=== PATIENT | male | born 1990 | race Caucasian/White ===

== ENCOUNTER 2025-04-29 17:07 | Inpatient (IN) | payer OTHER, SELFPAY ==
[2025-04-29] VITALS (13 sets, daily range): BP systolic 126–157; BP diastolic 73–108; BMI 34.2
[2025-04-29 13:36] LABS: Hematocrit 44.3 % (39.0-52.0); Hemoglobin 15.8 g/dL (13.0-18.0); Mean Corp Hgb Conc. 35.7 g/dL (33.0-37.0); Mean Corpuscular Volume 88.1 fL (80.0-94.0); Nucleated Red Blood Cells % 0 % (-); Platelet Count 266 10^3/uL (130-400); Red Cell Dist. Width 12.0 % (11.5-14.5)
[2025-04-29] MEDS: VALIUM INJECTION 5 MG IV (13:46)
[2025-04-29] MEDS: ZOFRAN 4 MG IV ×2 (13:46→15:40)
[2025-04-29 13:48] LABS: ALT (SGPT) 248 U/L (0-50); AST (SGOT) 141 U/L (17-59); Albumin 4.9 g/dl (3.5-5.0); Alkaline Phosphatase 74 U/L (38-126); Blood Urea Nitrogen 12 mg/dl (9-20); Calcium 8.9 mg/dl (8.4-10.2); Carbon Dioxide 26 mmol/L (22-30); Chloride 100 mmol/L (98-107); Estimated Creatinine Clearance > 125 ml/min; Glucose 113 mg/dl (70-99); Potassium 3.8 mmol/L (3.5-5.1); Sodium 135 mmol/L (135-145); Total Protein 8.1 g/dl (6.3-8.2); eGFR > 60.00
--- NOTE | 2025-04-29 14:06 | ED.GENMED ---
History of Present Illness
<Parish Klein PA-C - Last Filed: 04/29/25 16:48>
General
Chief Complaint: Alcohol Problem
Source: patient
Time Seen by Provider: 04/29/25 13:32
History of Present Illness
History of Present Illness:
35-year-old male past medical history of non-Hodgkin's lymphoma and chronic alcohol use presenting to the ER for evaluation after he had been trying to wean himself off alcohol over the last couple weeks. Previously he had been drinking 1 bottle
per day, has decreased over the last 2 weeks to 6 ounces but states today persistently nauseous with vomiting, restlessness, mild headache and generally feeling unwell. Patient states he would be amenable to outpatient based therapy but does not
want any inpatient based treatment. No fevers or infectious symptoms. Denying any SI to me.
Past History
<Parish Klein PA-C - Last Filed: 04/29/25 16:48>
Past History
ED Past Medical History: Asthma, Cancer and Psychiatric
ED Past Surgical History: None
Social History
Tobacco: Non-smoker
Alcohol: Chronic alcoholic
Drug: Marijuana
Personal: Single
Living: with family
Employment: Employed
Review of Systems
<Parish Klein PA-C - Last Filed: 04/29/25 16:48>
Review of Systems
All Other Systems: ROS reviewed and negative except as documented in HPI and ROS
Phy Exam
<Parish Klein PA-C - Last Filed: 04/29/25 16:48>
Physical Exam
Physical Exam:
GENERAL: Alert , in no apparent distress
HEAD: Normocephalic atraumatic
EYE: conjunctiva clear, anicteric sclera
NECK: Supple, no significant adenopathy.
ENT: o/p clr, mmm.
CARDIAC: Tachycardic rate, regular rhythm
LUNGS: Clear breath sounds bilaterally, no acute respiratory distress, no wheezes/rales/rhonchi
NEUROLOGICAL: Alert and oriented, minor tremors at the fingertips
SKIN: Warm and dry, skin intact.
MUSCULOSKELETAL: well perfused.
PSYCH: Normal and appropriate interaction.
Scores
<Parish Klein PA-C - Last Filed: 04/29/25 16:48>
Heart Failure Risk
Heart Failure Risk Score: Not Applicable
Heart Score for Chest Pain Patients
STEMI patient?: Not applicable
Withdrawal Assessment of Alcohol
Withdrawal Assessment Completed?: Yes
Nausea and Vomiting: Constant nausea, frequent dry heaves and vomiting
Tactile Disturbances: Mild itching, pins and needles, burning or numbness
Tremor: Not visible, but can be felt fingertip to fingertip
Auditory Disturbances: Not present
Paroxysmal Sweats: No sweat visible
Visual Disturbances: Not present
Anxiety: Mild anxiety
Headache, Fullness in Head: Mild
Agitation: Normal activity
Orientation and clouding of sensorium: Oriented and can do serial additions
Total CIWA Score: 13
Alcohol Withdrawal Medication Recommendation: Equal to MSAS Score 5-7. Lorazepam 1mg IV or PO NOW & re-assess q2hrs
<Jonny Pemberton DO - Last Filed: 04/29/25 14:59>
Withdrawal Assessment of Alcohol
Total CIWA Score: 13
Alcohol Withdrawal Medication Recommendation: Equal to MSAS Score 5-7. Lorazepam 1mg IV or PO NOW & re-assess q2hrs
Course
<Parish Klein PA-C - Last Filed: 04/29/25 16:48>
Orders/Labs/Results
Orders:
Orders
04/29/25 13:30
Alcohol Urgent
Complete Blood Count/With Diff Urgent
Comprehensive Metabolic Panel Urgent
Magnesium Urgent
Comment: ADD ON
04/29/25 13:39
Ondansetron Injectable [Zofran] 4 mg IV NOW STA
diazePAM [Valium Injection] 5 mg IV NOW STA
04/29/25 13:41
Add On- LAB Urgent
Tests Added?: mag
04/29/25 15:00
Dextrose 5%/0.9%Sodchl 1000 ml [D5/0.9% Sodium Chloride] 1,000 ml IV 1,000 mls/hr
04/29/25 15:30
Lorazepam [Ativan] 2 mg IV NOW STA
Ondansetron Injectable [Zofran] 4 mg IV NOW STA
04/29/25 16:41
Admit/Transfer Patient As Directed
Co-Sign Provider:
Level of Care: Inpatient admission
Assign to:: Telemetry
Physician / Group: Dr Moe
Diagnosis: Alcohol withdrawal
Reason for Telemetry: Arrhythmia
Date to Stop Telemetry: 05/02/25
Time to Stop Telemetry: 11:00
Reason for Hospitalization: Alcohol withdrawal
Expected length of stay greater than two midnights?: Yes
ELOS- Estimated Length of Stay in days: 2
I certify the patient meets the requirements for IP care: Yes
PRN Pain Medication Management As Directed
May give lesser potent ordered pain med per pt: Yes
preference::
Protocol:: Medication orders for pain may be administered in a
manner that supports deferring to patient preference
when the pt is:
- Requesting an ordered lesser potent pain medication.
Least to most potent pain medications are defined
as: acetaminophen < NSAID < tramadol < opioids
(morphine, oxycodone, hydromorphone).
- Requesting a lesser dose of the same medication IF
ORDERED.
- Requesting a less intrusive route of administration
if both routes are prescribed by the provider (PO <
IV).
04/29/25 16:42
Code Status As Directed
Resuscitation Status: Full Code
04/29/25 16:44
Case Management Consult Once
Case Management Consult: Other
Comment: Substance abuse counseling
DIETARY IP CONSULT Routine
Reason for Consult: Nutrition support, possible refeeding guidelines
Urine Drug Abuse Screen Routine
0.9% Sodium Chloride [Nss (Preservative Free)] See Protocol IV PRN PRN
FOLic ACID [Folvite] 1 mg 0.9% Sodium Chloride 50 ml [Nss] 50 ml IV DAILYPRN
Lorazepam [Ativan] 1 mg IV Q1HPRN PRN
Lorazepam [Ativan] 1 mg PO Q2HPRN PRN
Lorazepam [Ativan] 2 mg IV Q1HPRN PRN
MSAS SCORE As Directed
MSAS Score 0-4: Repeat MSAS every 2 hours until 0-4 for three consecutive assessments, then every 4 hours x 48
hours.
MSAS Score 5-7: For MILD withdrawl symptoms. Repeat MSAS and RASS every 2 hours
MSAS Score 8-11: For MODERATE withdrawal symptoms. Repeat MSAS and RASS every 1 hour. Consider ICU or IMU
level of care.
MSAS Score > 11: For SEVERE withdrawal symptoms. Repeat MSAS and RASS every 1 hour. Notify provider, consider
ICU level of care.
MSAS Additional Instructions: If no improvement or no decrease in score from severe to moderate within 12
hours, consult psychiatry
MSAS Notify Provider: Notify provider if patient requires more than 10 mg of Lorazepam in eight hour period.
04/29/25 17:00
FOLic ACID [Folvite] 1 mg PO DAILY
04/29/25 20:00
Thiamine Injection 200 mg IV Q12
05/02/25 11:00
DC Protocol for Telemetry ONCE
05/02/25 20:00
Thiamine HCl [Vitamin B1] 100 mg PO BID
Abnormal Lab Results
04/29/25
13:30
MCH 31.4 H pg
(27.0-31.0)
Abs Immat Gran (auto) 0.1 H 10^3/uL
(0-0.05)
Absolute Monos (auto) 0.7 H 10^3/uL
(0.1-0.6)
Immature Gran % 1.0 H %
(0-0.5)
Monocytes % 12.2 H %
(1.7-9.3)
Glucose 113 H mg/dl
(70-99)
AST 141 H U/L
(17-59)
ALT 248 H U/L
(0-50)
04/29/25 13:30
04/29/25 13:30
Vital Signs
Initial and Last Documented VS:
Initial Vital Signs
Temp Pulse Resp BP Pulse Ox
98.9 F 116 18 149/106 95
04/29/25 13:15 04/29/25 13:15 04/29/25 13:15 04/29/25 13:15 04/29/25 13:15
Last Documented Vital Signs
Temp Pulse Resp BP Pulse Ox
98.8 F 109 27 126/73 93
04/29/25 15:35 04/29/25 16:15 04/29/25 16:15 04/29/25 16:00 04/29/25 16:15
<Jonny Pemberton, DO - Last Filed: 04/29/25 14:59>
Orders/Labs/Results
Orders:
Orders
04/29/25 13:30
Alcohol Urgent
Complete Blood Count/With Diff Urgent
Comprehensive Metabolic Panel Urgent
Magnesium Urgent
Comment: ADD ON
04/29/25 13:39
Ondansetron Injectable [Zofran] 4 mg IV NOW STA
diazePAM [Valium Injection] 5 mg IV NOW STA
04/29/25 13:41
Add On- LAB Urgent
Tests Added?: mag
04/29/25 15:00
Dextrose 5%/0.9%Sodchl 1000 ml [D5/0.9% Sodium Chloride] 1,000 ml IV 1,000 mls/hr
04/29/25 15:30
Lorazepam [Ativan] 2 mg IV NOW STA
Ondansetron Injectable [Zofran] 4 mg IV NOW STA
04/29/25 16:41
Admit/Transfer Patient As Directed
Co-Sign Provider:
Level of Care: Inpatient admission
Assign to:: Telemetry
Physician / Group: Dr Moe
Diagnosis: Alcohol withdrawal
Reason for Telemetry: Arrhythmia
Date to Stop Telemetry: 05/02/25
Time to Stop Telemetry: 11:00
Reason for Hospitalization: Alcohol withdrawal
Expected length of stay greater than two midnights?: Yes
ELOS- Estimated Length of Stay in days: 2
I certify the patient meets the requirements for IP care: Yes
PRN Pain Medication Management As Directed
May give lesser potent ordered pain med per pt: Yes
preference::
Protocol:: Medication orders for pain may be administered in a
manner that supports deferring to patient preference
when the pt is:
- Requesting an ordered lesser potent pain medication.
Least to most potent pain medications are defined
as: acetaminophen < NSAID < tramadol < opioids
(morphine, oxycodone, hydromorphone).
- Requesting a lesser dose of the same medication IF
ORDERED.
- Requesting a less intrusive route of administration
if both routes are prescribed by the provider (PO <
IV).
04/29/25 16:42
Code Status As Directed
Resuscitation Status: Full Code
04/29/25 16:44
Case Management Consult Once
Case Management Consult: Other
Comment: Substance abuse counseling
DIETARY IP CONSULT Routine
Reason for Consult: Nutrition support, possible refeeding guidelines
Urine Drug Abuse Screen Routine
0.9% Sodium Chloride [Nss (Preservative Free)] See Protocol IV PRN PRN
FOLic ACID [Folvite] 1 mg 0.9% Sodium Chloride 50 ml [Nss] 50 ml IV DAILYPRN
Lorazepam [Ativan] 1 mg IV Q1HPRN PRN
Lorazepam [Ativan] 1 mg PO Q2HPRN PRN
Lorazepam [Ativan] 2 mg IV Q1HPRN PRN
MSAS SCORE As Directed
MSAS Score 0-4: Repeat MSAS every 2 hours until 0-4 for three consecutive assessments, then every 4 hours x 48
hours.
MSAS Score 5-7: For MILD withdrawl symptoms. Repeat MSAS and RASS every 2 hours
MSAS Score 8-11: For MODERATE withdrawal symptoms. Repeat MSAS and RASS every 1 hour. Consider ICU or IMU
level of care.
MSAS Score > 11: For SEVERE withdrawal symptoms. Repeat MSAS and RASS every 1 hour. Notify provider, consider
ICU level of care.
MSAS Additional Instructions: If no improvement or no decrease in score from severe to moderate within 12
hours, consult psychiatry
MSAS Notify Provider: Notify provider if patient requires more than 10 mg of Lorazepam in eight hour period.
04/29/25 17:00
FOLic ACID [Folvite] 1 mg PO DAILY
04/29/25 20:00
Thiamine Injection 200 mg IV Q12
05/02/25 11:00
DC Protocol for Telemetry ONCE
05/02/25 20:00
Thiamine HCl [Vitamin B1] 100 mg PO BID
Abnormal Lab Results
04/29/25
13:30
MCH 31.4 H pg
(27.0-31.0)
Abs Immat Gran (auto) 0.1 H 10^3/uL
(0-0.05)
Absolute Monos (auto) 0.7 H 10^3/uL
(0.1-0.6)
Immature Gran % 1.0 H %
(0-0.5)
Monocytes % 12.2 H %
(1.7-9.3)
Glucose 113 H mg/dl
(70-99)
AST 141 H U/L
(17-59)
ALT 248 H U/L
(0-50)
04/29/25 13:30
04/29/25 13:30
Vital Signs
Initial and Last Documented VS:
Initial Vital Signs
Temp Pulse Resp BP Pulse Ox
98.9 F 116 18 149/106 95
04/29/25 13:15 04/29/25 13:15 04/29/25 13:15 04/29/25 13:15 04/29/25 13:15
Last Documented Vital Signs
Temp Pulse Resp BP Pulse Ox
98.8 F 109 27 126/73 93
04/29/25 15:35 04/29/25 16:15 04/29/25 16:15 04/29/25 16:00 04/29/25 16:15
<Parish Klein PA-C - Last Filed: 04/29/25 16:48>
MDM/Problems Addressed
Differential Diagnosis Includes:
Alcohol abuse
Alcohol withdrawal
Electrolyte derangement
Dehydration
MDM/Problems Addressed:
35-year-old male presenting the ER for evaluation of alcohol abuse. Has been attempting to self wean at home but now appears to be in acute withdrawal. Mildly hypertensive and tachycardic. Will treat symptoms with IV Valium and Zofran as well as
fluids. Will consult with [facility]. Disposition pending
Chronic conditions affecting care: Psychiatric illness
Acute Exacerbation and/or Progression of Chronic Illness: Psychiatric illness
<Parish Klein PA-C - Last Filed: 04/29/25 16:48>
*Pulse Oximetry
SaO2: 95
Oxygen Mode of Delivery: Room air
Patient hypoxic: no
*Chief Lock Operator Interpretation
Rate: normal and tachycardiac
Heart Rate: 110
Rhythm: sinus
*Critical Care Note
Total Time (30-74mins, 75-104mins- exclusive of procedures): 30
comment:
Critical care statement: A total of 30 minutes of critical care time was provided for this patient. This includes management of unstable vital signs, evaluation of the patient at bedside, reviewing the patient's pertinent medical records, discussion
with consultants, review of old EKGs and review of pertinent medical records. This time with separate from time utilized to perform the aforementioned documented procedures
<Parish Klein PA-C - Last Filed: 04/29/25 16:48>
Patient Management
Discussion with other providers: Hospitalist
Escalation/DeEscalation of care consider admission/obs:
Patient with minimal improvement of symptoms following first round of IV medications. Noted to still be significantly tachycardic, nauseous and generally unwell. Still scoring greater than 13 on CIWA protocol. Will admit for continued management
of acute alcohol withdrawal. Hospitalist team aware and accepts for continued evaluation and treatment
ED Attending Note
<Parish Klein PA-C - Last Filed: 04/29/25 16:48>
-
Portions of this chart may have been created with voice recognition software.� Occasional wrong word or��sound alike� substitutions may have occurred due to the inherent limitations of voice recognition software.
<Jonny Pemberton DO - Last Filed: 04/29/25 14:59>
ED Attending Note
Patient seen and examined by attending physician: Yes
I performed the substantive portion of visit, reviewed & personally made and approve the management plan that is documented in note by myself or FREEDOM.: Yes
ED Attending Note:
35-year-old male who recently has been binge drinking after quitting his job. Patient states he has had persistent vomiting. he did try to wean himself off at home. Exam: Tachycardic, hypertensive, mildly restless. Awake alert and oriented. No
focal motor deficits. Assessment and plan: Benzodiazepines, IV fluids, add dextrose. May need inpatient care
Discharge Plan
Departure
Patient Disposition: Admit
Date of Disposition: 04/29/25
Time of Disposition: 15:32
Presentation/result/management discussed w/ accepting MD/DO: Hospitalist
Discharge Problem:
Alcohol withdrawal
Prescriptions:
No Action
No Current Medications
0
Interventions
Interventions:
*Risk Screen - Suicide Last Done: 04/29/25 13:15
*General Assessment Last Done: 04/29/25 13:15
*Neglect/Abuse Screening Last Done: 04/29/25 13:15
*ED- Fall Risk Assessment Last Done: 04/29/25 13:15
*ED COVID-19 Vaccine History Last Done: 04/29/25 13:15
*ED Influenza Vaccine History Last Done: 04/29/25 13:15
ED- Neurological Assessment Last Done: 04/29/25 13:15
ED-Psychological Assessment Last Done: 04/29/25 13:15
Discharge Date and Time
Print Language: CITIZEN [place]
[2025-04-29 14:12] LABS: Magnesium 1.8 mg/dl (1.6-2.3)
[2025-04-29] MEDS: ATIVAN 2 MG IV (15:46)
[2025-04-29] MEDS: D5/0.9% SODIUM CHLORIDE 1000 IV (15:52)
--- NOTE | 2025-04-29 16:07 | HPS.HSE ---
Family Physician
-
Family Physician:
Chief Complaint
-
Nausea and vomiting
History of Present Illness
Patient 35 years old male with history of heavy alcohol use, history of non-Hodgkin lymphoma in the past, came into the hospital with persistent nausea and vomiting. Patient has been complaining of tremors, nausea, vomiting, anxiety, the last 2 to
3 days and has been drinking alcohol heavily. Last drink was around 1 AM he tells me this morning. Patient has been trying to cut down on his daily habit by himself over the last week or so without significant success. He denies any other illicit
drug use, denies any IVDA, denies fevers or chills. Denies [id number]'s or herbs intake. Denies any medications at home. Denies any seizures from alcohol withdrawal in the past. Denies any chest pain or shortness of breath. Here in the ER
he has been noted to be tachycardic and tremulous and has been given some multiple benzodiazepines doses. He was referred to hospitalist service for further evaluation.
Medical History
Past Medical History
Past Medical History: Reports Other (heavy alcohol use, history of non-Hodgkin lymphoma.)
Past Surgical History: Reports None
Social History
Tobacco: Non-smoker
Alcohol: Daily
Drug: None
Family History
Family History: Not pertinent
Allergies / Home Medications
Allergies reflects when Allergies were last updated in [employer].
Home Medications with original date entered in [employer]
Allergy/Medication List:
Allergies
Allergy/AdvReac Type Severity Reaction Status Date / Time
prochlorperazine (From AdvReac Vomiting Verified 04/29/25 15:33
Compazine)
Home Medications
No Meds [No Current Medications] 04/29/25
I personally reviewed with patient and no home medications that he is aware.
Review of Systems
-
A 12 point ROS was completed and negative except as noted: Yes
Physical Exam
Vital Signs
Vital Signs
Temp Pulse Resp BP Pulse Ox
98.8 F 113 18 147/93 95
04/29/25 15:35 04/29/25 15:45 04/29/25 15:45 04/29/25 15:35 04/29/25 15:45
Physical exam:
General: Acutely ill
HEENT: Normocephalic, Atraumatic and Moist Mucous Membranes
Respiratory: Clear to Auscultation; Negative Wheezes, Rales or Rhonchi
Cardiac: Regular Rhythm, tachycardic, and S1/S2
GI: Soft, Nontender and Nondistended
Musculoskeletal: No Clubbing, No Cyanosis and No Edema
Neuro: Awake, Alert and Oriented, tremors present, nystagmus, no neurodeficits
Psych: Anxious
Physical Exam
General: Other
Laboratory Results
-
04/29/25 13:30
04/29/25 13:30
Laboratory Results
Total Bilirubin 1.0 mg/dl (0.2-1.3) 04/29/25 13:30
AST 141 U/L (17-59) H 04/29/25 13:30
ALT 248 U/L (0-50) H 04/29/25 13:30
Alkaline Phosphatase 74 U/L (38-126) 04/29/25 13:30
Impression/Plan
-
IMPRESSION:
Patient 35 years old male came into the hospital with severe alcohol intoxication and severe alcohol withdrawal as well. Patient at risk of increased morbidity mortality therefore he will need to be treated and monitored in hospital.
PLAN:
Severe alcohol withdrawal:
Start withdrawal protocol
Thiamine and folate
IV fluid
Monitor mental status and behavior
Elevated LFTs:
Although not typically 2:1 pattern of AST and ALT and is actually reversed, likely alcohol related
Check INR to evaluate discriminant factor
DVT prophylaxis:
Lovenox SQ
CODE STATUS:
Full code
Time spent 75 minutes
--- NOTE | 2025-04-29 17:06 | EDCM ---
Received consult, met with pt bedside in ED. Pt lives with his mother in multistory home.
Independent in ADLs, personal care and ambulation at baseline, no DME in home.
Confirms prescription coverage.
No hx VN or SNF.
Pt told me he spoke to someone from [facility] earlier today and he will come back tomorrow with pamphlets.
Does not currently have PCP.
Pharmacy: [facility]
Anticipate discharge home, no needs. CM will continue to follow for all discharge planning needs.
[2025-04-29] MEDS: FOLVITE 1 MG PO (18:40)
[2025-04-29 18:52] LABS: INR 1.00; PT 13.7 Sec (11.4-14.6)
[2025-04-29] MEDS: LOVENOX 40 MG SC (20:27)
[2025-04-29] MEDS: THIAMINE INJECTION 200 MG IV (20:30)
[2025-04-29] MEDS: D5/0.45%NSS with KCL 20 MEQ 1000 IV (20:37)
[2025-04-29] MEDS: ATIVAN 1 MG PO (21:05)
[2025-04-30] VITALS (12 sets, daily range): BP systolic 117–167; BP diastolic 84–105; BMI 35.1
[2025-04-30] MEDS: ATIVAN 1 MG PO ×3 (01:22→08:31)
[2025-04-30] MEDS: D5/0.45%NSS with KCL 20 MEQ 1000 IV (04:54)
[2025-04-30 05:27] LABS: INR 0.97; PT 13.4 Sec (11.4-14.6)
[2025-04-30 05:31] LABS: Hematocrit 42.3 % (39.0-52.0); Hemoglobin 14.7 g/dL (13.0-18.0); Mean Corp Hgb Conc. 34.8 g/dL (33.0-37.0); Mean Corpuscular Volume 89.1 fL (80.0-94.0); Platelet Count 191 10^3/uL (130-400); Red Cell Dist. Width 11.9 % (11.5-14.5)
[2025-04-30 06:07] LABS: ALT (SGPT) 198 U/L (0-50); AST (SGOT) 101 U/L (17-59); Albumin 4.3 g/dl (3.5-5.0); Alkaline Phosphatase 69 U/L (38-126); Blood Urea Nitrogen 8 mg/dl (9-20); Calcium 8.5 mg/dl (8.4-10.2); Carbon Dioxide 26 mmol/L (22-30); Chloride 100 mmol/L (98-107); Estimated Creatinine Clearance > 125 ml/min; Glucose 95 mg/dl (70-99); Potassium 3.7 mmol/L (3.5-5.1); Sodium 132 mmol/L (135-145); Total Protein 7.2 g/dl (6.3-8.2); eGFR > 60.00
[2025-04-30] MEDS: FOLVITE 1 MG PO (08:31)
[2025-04-30] MEDS: THIAMINE INJECTION 200 MG IV ×2 (08:57→19:48)
[2025-04-30 11:24] LABS: Magnesium 1.5 mg/dl (1.6-2.3)
[2025-04-30] MEDS: D5/0.45%NSS with KCL 20 MEQ IV (11:42)
[2025-04-30] MEDS: MAGNESIUM SULFATE 50 IV (12:25)
--- NOTE | 2025-04-30 12:30 | W.PN.HOSP.TC ---
Today's Communication/Plan
-
Replace magnesium. Alcohol withdrawal protocol
Assessment / Plan
Assessment / Plan
Physical exam:
General: Well Developed, Well Nourished and No Apparent Distress
HEENT: Normocephalic, Atraumatic and Moist Mucous Membranes
Respiratory: Clear to Auscultation; Negative Wheezes, Rales or Rhonchi
Cardiac: Regular Rhythm and S1/S2
GI: Soft, Nontender and Nondistended
Musculoskeletal: No Clubbing, No Cyanosis and No Edema
Neuro: Awake, Alert and Oriented, no neurological deficit
Psych: Calm
A/P:
Severe alcohol withdrawal:
Continue withdrawal protocol
Thiamine and folate
Stop IV fluid
Monitor mental status and behavior
Patient interested in alcohol rehab as outpatient
Hypomagnesemia:
Replete and trend
Elevated LFTs:
Trending down appropriately
DVT prophylaxis:
Lovenox SQ
CODE STATUS:
Full code
Anticipated Discharge: Within 24 hours
Subjective/Interval History
-
Date of Service: April 30, 2025
Patient still having some tremors and nausea but overall improving.
Objective Data
-
Labs:
Laboratory Results
04/30/25
05:01
WBC 4.9
Hgb 14.7
Hct 42.3
Plt Count 191 D
PT 13.4
INR 0.97
Sodium 132 L
Potassium 3.7
Chloride 100
Carbon Dioxide 26
BUN 8 L
Creatinine 0.8
Glucose 95
Calcium 8.5
Total Bilirubin 1.6 H
AST 101 H
ALT 198 H
Alkaline Phosphatase 69
Vital Signs:
Vital Signs
Temp Pulse Resp BP Pulse Ox
97.7 F 93 20 162/102 98
04/30/25 08:25 04/30/25 08:25 04/30/25 08:25 04/30/25 08:25 04/30/25 08:25
[2025-04-30] MEDS: ZOFRAN 4 MG IV (18:13)
[2025-04-30] MEDS: LOVENOX 40 MG SC (18:13)
[2025-04-30] MEDS: TYLENOL 650 MG PO (18:14)
[2025-04-30] MEDS: CATAPRES 0.1 MG PO (19:49)
[2025-05-01 03:00] VITALS: BP 135/96
[2025-05-01] MEDS: ATIVAN 1 MG PO (03:28)
[2025-05-01 07:00] VITALS: BP 145/103
[2025-05-01 08:28] VITALS: BP 145/103
[2025-05-01 08:46] LABS: Blood Urea Nitrogen 8 mg/dl (9-20); Calcium 9.2 mg/dl (8.4-10.2); Carbon Dioxide 23 mmol/L (22-30); Chloride 100 mmol/L (98-107); Estimated Creatinine Clearance > 125 ml/min; Glucose 89 mg/dl (70-99); Magnesium 2.3 mg/dl (1.6-2.3); Potassium 4.1 mmol/L (3.5-5.1); Sodium 134 mmol/L (135-145); eGFR > 60.00
[2025-05-01] MEDS: CATAPRES 0.1 MG PO ×2 (08:55→20:12)
[2025-05-01] MEDS: TYLENOL 650 MG PO (08:55)
[2025-05-01] MEDS: FOLVITE 1 MG PO (08:55)
[2025-05-01] MEDS: THIAMINE INJECTION 200 MG IV ×2 (08:56→20:13)
--- NOTE | 2025-05-01 09:30 | W.PN.HOSP.TC ---
Today's Communication/Plan
-
Antihypertensives
Assessment / Plan
Assessment / Plan
Physical exam:
General: Well Developed, Well Nourished and No Apparent Distress
HEENT: Normocephalic, Atraumatic and Moist Mucous Membranes
Respiratory: Clear to Auscultation; Negative Wheezes, Rales or Rhonchi
Cardiac: Regular Rhythm and S1/S2
GI: Soft, Nontender and Nondistended
Musculoskeletal: No Clubbing, No Cyanosis and No Edema
Neuro: Awake, Alert and Oriented, no neurological deficit
Psych: Calm
A/P:
Severe alcohol withdrawal:
Continue withdrawal protocol
Thiamine and folate
Stop IV fluid
Monitor mental status and behavior
Patient interested in alcohol rehab as outpatient
Discussed with returned case inspector today
Blood pressure elevated likely hypertension:
On clonidine
Will start him on Norvasc today
Anxiety, not specified:
Will start him on hydroxyzine scheduled doses
Insomnia:
Start him on trazodone
Hypomagnesemia:
Replete and trend
Elevated LFTs:
Trending down appropriately
DVT prophylaxis:
Lovenox SQ
CODE STATUS:
Full code
Anticipated Discharge: Within 24 hours
Subjective/Interval History
-
Date of Service: May 01, 2025
Patient with increased blood pressure. Patient also not able to sleep. Withdrawal symptoms overall improving.
Objective Data
-
Labs:
Laboratory Results
05/01/25
07:51
Sodium 134 L
Potassium 4.1
Chloride 100
Carbon Dioxide 23
BUN 8 L
Creatinine 0.8
Glucose 89
Calcium 9.2
Vital Signs:
Vital Signs
Temp Pulse Resp BP Pulse Ox
98.1 F 91 18 145/103 97
05/01/25 07:00 05/01/25 07:00 05/01/25 07:00 05/01/25 07:00 05/01/25 07:00
[2025-05-01 11:00] VITALS: BP 157/110
--- NOTE | 2025-05-01 12:09 | CM ---
Addendum entered by Kya Werner 05/02/25 08:16:
Late entry: Vitaliy spoke with patient and patient does not wish to go to [facility] inpatient rehab in [place]. The patient stated that he wants to go to [facility]. Vitaliy from [facility] to visit the patient Saturday.
PLAN: Inpatient at [facility] alcohol rehab, CM will follow up with Vitaliy Thursday 05/03
Addendum entered by Kya Werner 05/01/25 14:26:
call received from Vitaliy BUSH
[facility] set up for Thursday 05/03
Vitaliy will be onsite on Saturday - also states they will provide transport for the patient
tt hospitalist
patient agreeable to plan
PLAN: Inpatient [facility] rehab Saturday05/03/25
Rehab will provide transportation, CM to follow up with Vitaliy from [facility] Saturday
Original Note:
spoke with patient today
states he would like inpatient alcohol rehab
CM spoke with Vitaliy from [facility] who will see patient today regarding facilities
insurance info given to Vitaliy by patient-patient states he extended ins after left job
Vitaliy also discussed [facility] funding if needed
TT hospitalist
CM faxed clinicals to Vitaliy at [facility] intake - [phone]
PLAN: inpatient alcohol rehab, Vitaliy will contact CM regarding facility, CM will continue to follow for discharge planning needs
[2025-05-01] MEDS: NORVASC 5 MG PO (13:06)
[2025-05-01 15:00] VITALS: BP 125/86
[2025-05-01] MEDS: LOVENOX 40 MG SC (17:32)
[2025-05-01] MEDS: ATARAX 25 MG PO ×2 (17:32→21:14)
[2025-05-01 19:00] VITALS: BP 113/62
[2025-05-01] MEDS: DESYREL 50 MG PO (21:14)
[2025-05-02 00:14] VITALS: BP 113/71
[2025-05-02 03:00] VITALS: BP 111/72
[2025-05-02 08:08] VITALS: BP 135/96
[2025-05-02] MEDS: CATAPRES 0.1 MG PO (09:29)
[2025-05-02] MEDS: ATARAX 25 MG PO (09:29)
[2025-05-02] MEDS: THIAMINE INJECTION 200 MG IV (09:29)
[2025-05-02] MEDS: FOLVITE 1 MG PO (09:29)
[2025-05-02] MEDS: NORVASC 5 MG PO (09:29)
[2025-05-02] MEDS: TYLENOL 650 MG PO (09:29)
[2025-05-02 10:30] LABS: Blood Urea Nitrogen 15 mg/dl (9-20); Calcium 9.4 mg/dl (8.4-10.2); Carbon Dioxide 26 mmol/L (22-30); Chloride 99 mmol/L (98-107); Estimated Creatinine Clearance > 125 ml/min; Glucose 69 mg/dl (70-99); Magnesium 2.3 mg/dl (1.6-2.3); Potassium 4.1 mmol/L (3.5-5.1); Sodium 133 mmol/L (135-145); eGFR > 60.00
[2025-05-02 10:32] LABS: Hematocrit 46.2 % (39.0-52.0); Hemoglobin 15.8 g/dL (13.0-18.0); Mean Corp Hgb Conc. 34.2 g/dL (33.0-37.0); Mean Corpuscular Volume 91.3 fL (80.0-94.0); Platelet Count 221 10^3/uL (130-400); Red Cell Dist. Width 12.3 % (11.5-14.5)
[2025-05-02 11:21] VITALS: BP 120/87
--- NOTE | 2025-05-02 12:47 | W.PN.HOSP.TC ---
Today's Communication/Plan
-
Discharge planning today
Assessment / Plan
Assessment / Plan
Physical exam:
General: Well Developed, Well Nourished and No Apparent Distress
HEENT: Normocephalic, Atraumatic and Moist Mucous Membranes
Respiratory: Clear to Auscultation; Negative Wheezes, Rales or Rhonchi
Cardiac: Regular Rhythm and S1/S2
GI: Soft, Nontender and Nondistended
Musculoskeletal: No Clubbing, No Cyanosis and No Edema
Neuro: Awake, Alert and Oriented, no neurological deficit
Psych: Calm
A/P:
Severe alcohol withdrawal:
Patient improved substantially
No need for more alcohol withdrawal protocol
He was initially interested in inpatient alcohol rehab but after further discussions he decided on outpatient alcohol rehab.
Plan to discharge today
Blood pressure elevated likely hypertension:
Will stop clonidine and decrease Norvasc to 2.5 mg daily
Anxiety, not specified:
Continue hydroxyzine scheduled doses
Insomnia:
Continue him on trazodone
Hypomagnesemia:
Replete and trend
Elevated LFTs:
Trending down appropriately
DVT prophylaxis:
Lovenox SQ
CODE STATUS:
Full code
Anticipated Discharge: Today
Subjective/Interval History
-
Date of Service: May 02, 2025
Patient doing well overall. Patient also states that he slept for the first time well for quite some time
Objective Data
-
Labs:
Laboratory Results
05/02/25
07:32
WBC 5.5
Hgb 15.8
Hct 46.2
Plt Count 221
Sodium 133 L
Potassium 4.1
Chloride 99
Carbon Dioxide 26
BUN 15
Creatinine 0.9
Glucose 69 L
Calcium 9.4
Vital Signs:
Vital Signs
Temp Pulse Resp BP Pulse Ox
98.0 F 92 16 120/87 96
05/02/25 11:21 05/02/25 11:21 05/02/25 11:21 05/02/25 11:21 05/02/25 11:21
I&O
05/01/25 05/02/25 05/03/25
06:59 06:59 06:59
Intake Total 960 / 960
Balance 960 / 960
--- NOTE | 2025-05-02 12:48 | W.DCSUMMARY ---
Discharge Summary
Discharge Data
Date of Admission: 04/29/25
Date of Discharge: 05/02/25
-
Pending Results: No
Hospital Course
Patient 35 years old male with alcohol use disorder came into the hospital with alcohol intoxication and severe alcohol withdrawal. Patient was treated with alcohol withdrawal protocol and he improved substantially. Patient also had LFTs elevated
most likely related to alcohol with trended and they came down appropriately. Patient had hypomagnesemia and magnesium was replaced appropriately as well. Patient had hypertension that initially was related to the alcohol withdrawal protocol but
also there might be an element of hypertension and he was started on antihypertensive and low-dose calcium channel jimmy instructed to follow-up blood pressure as outpatient and keep a log. He was going to inpatient alcohol rehab but after
discussion about the details and logistics patient decided against it and he is still willing to do outpatient rehab. Otherwise, patient feels back to his baseline and he also took some angiolytics and some medication for insomnia that seem to help
him and he will continue those as outpatient. He will be discharged in stable condition today.
Discharge Plan
-
Patient Disposition: Home (Routine Discharge)
Discharge Diagnosis/Procedures: Alcohol withdrawal. Anxiety not specified. Insomnia. Hypertension. Elevated liver function test due to alcohol.
Diet: Regular
Activity: As tolerated
Blood Work: Please PCP to order CBC, CMP within 1 to 2 weeks.
Referrals:
Primary care provider [Other] - in less than 1 week
NONE,* [Family Provider, Internal Medicine]
Prescriptions:
New
trazodone 50 mg Tablet
50 mg PO HS 30 Days Qty: 30 0RF
hydroxyzine HCl 25 mg Tablet
25 mg PO TID 14 Days Qty: 42 0RF
amlodipine 2.5 mg tablet
2.5 mg PO DAILY Qty: 30 0RF
Discharge Orders:
Discharge Patient (As Directed); Ordered 05/02/25
Ordered By: Carlos Moe
Discharge Date and Time
Print Language: PAKISTANI
--- NOTE | 2025-05-02 13:22 | CM ---
Patient seen at bedside
discharged today-patient states going to outpatient alcohol rehab
Vitaliy from [facility] notified as he was going to see the patient tomorrow here at hospital
PLAN: Home, outpatient alcohol rehab
[facility]
== END 2025-05-02 14:25 | disposition home or self-care (01) | DRG 897 ==
LOC: 3 WEST ACU 17:07
PROVIDERS: ADMITTING PHYSICIAN Hospitalist; EMERGENCY PHYSICIAN Emergency Medicine
DX: F10.139 Alcohol abuse with withdrawal, unspecified (principal); E83.42 Hypomagnesemia; I10 Essential (primary) hypertension; E86.0 Dehydration; R79.89 Other specified abnormal findings of blood chemistry; F41.9 Anxiety disorder, unspecified; G47.00 Insomnia, unspecified; Z79.899 Other long term (current) drug therapy
CPT/HCPCS: 80048; 80053; 80306; 80307; 82077; 83735; 85025; 85027; 85610; 96365; 96366; 96375; 96376; 99291